=== PATIENT | male | born 1980 | race Asian ===

== ENCOUNTER 2023-12-21 16:29 | Emergency (ER) | payer OTHER, SELFPAY ==
[2023-12-21 16:30] VITALS: BP 141/80
--- NOTE | 2023-12-21 17:58 | ED.GENMED ---
Addendum entered and electronically signed by Mary Ocampo NP 12/22/23 09:10:
[facility] called, they do not have oxycodone capsules, requested rx for oxycodone pills, new rx sent.
Original Note:
History of Present Illness
General
Chief Complaint: Dizziness
Source: patient, spouse and other (language line )
Exam Limitations: none
Time Seen by Provider: 12/21/23 17:12
Nursing documentation reviewed up to this point in time: agreed with
History of Present Illness
History of Present Illness:
Patient is a 43-year-old male who was brought to the ER by for evaluation. Patient is here with right flank pain on Wednesday 2 days ago and has had nausea. Patient does feel intermittent dizziness. He does have a known stone and he reports
his symptoms of flank pain and dizziness are similar to when he had a stone in the past. He denies any fevers.
Pt has nausea but denies vomiting.
Review of Systems
Review of Systems
Allergies reviewed?: Yes
All Other Systems: ROS reviewed and negative except as documented in HPI and ROS
Constitutional: Reports no symptoms; Denies fever, fatigue or chills
Respiratory: Reports no symptoms
Cardiac: Reports no symptoms
ABD/GI: Reports nausea; Denies vomiting
: Reports no symptoms
Musculoskeletal: Reports no symptoms
Skin: Reports no symptoms
Neurological: Reports no symptoms
Psychiatric: Reports no symptoms
Phy Exam
General Physical Exam
General Presentation: no apparent distress
General age: appears stated age
General Skin: warm and dry
General Habitus: normal
General Mental: alert
General Hydration: appears well hydrated
Gastrointestinal Exam
Gastrointestinal Exam: non tender and soft
Neurological Exam
Neurological Exam: alert and oriented x3
Course
Orders/Labs/Results
Orders:
Orders
12/21/23 16:34
Electrocardiogram (*1) Urgent
Reason for Study: Chest Pain
EKG- Treatment ONCE
12/21/23 17:53
CBC/With Diff [Complete Blood Count/With Diff] Urgent
Comprehensive Metabolic Panel Urgent
12/21/23 17:58
CT Abd/pel Without Iv Or Oral Urgent
Comment:
Reason For Exam: right flank pain
Ondansetron Injectable [Zofran] 4 mg IV NOW STA
12/21/23 17:59
0.9% Sodium Chloride 1000 ml [Nss] 1,000 ml IV BOLUS
12/21/23 18:27
Urinalysis Reflex To Culture Urgent
Date Specimen was Collected: 12/21/23
Time Specimen was Collected: 18:26
Abnormal Lab Results
12/21/23
17:53
RBC 4.67 L 10^6/uL
(4.70-6.10)
BUN 21 H mg/dl
(9-20)
12/21/23 17:53
12/21/23 17:53
Vital Signs
Initial and Last Documented VS:
Initial Vital Signs
Temp Pulse Resp BP Pulse Ox
98.6 F 80 20 141/80 99
12/21/23 16:30 12/21/23 16:30 12/21/23 16:30 12/21/23 16:30 12/21/23 16:30
Last Documented Vital Signs
Temp Pulse Resp BP Pulse Ox
98.6 F 83 15 141/80 100
12/21/23 16:30 12/21/23 17:52 12/21/23 17:52 12/21/23 16:30 12/21/23 17:52
MDM/Problems Addressed
Differential Diagnosis Includes:
Not limited to lightheadedness, renal colic, UTI, pyelonephritis
MDM/Problems Addressed:
Symtoms are consistent w/ renal colic. Pt with large 7mm in prox left ureter mod to severe left ureteral and pelvicalyceal dilatation. Patient is comfortable here and has not needed any medication he reported pain was worse at home. He is in no
acute distress denies any fevers and is afebrile normal kidney function and negative UTI. Case discussed with urology Dr. Hughes. This will likely need surgical intervention however if no infection and normal renal function urology is comfortable
with patient going home I did give patient prescription for Flomax and narcotic he may take ibuprofen and Tylenol however first. All instructions reviewed with and patient. is very understanding of Green[place]ic able to verbalize back to me
the instructions.
Not limited to
*Radiology
Radiology exam reviewed: radiology read reviewed (Large obstructing calculus within the proximal left ureter moderate to severe left ureteral and pelvicalyceal dilation proximal to the calculus measures 7 mmx6x3.3)
*Critical Care Note
Total Time (30-74mins, 75-104mins- exclusive of procedures): Not Applicable
Patient Management
Discussion with other providers: [facility] (urology )
Escalation/DeEscalation of care consider admission/obs:
Urology Dr. Hughes
ED Attending Note
-
Portions of this chart may have been created with voice recognition software.� Occasional wrong word or��sound alike� substitutions may have occurred due to the inherent limitations of voice recognition software.
Discharge Plan
Departure
Patient Disposition: Home (Routine Discharge)
Date of Disposition: 12/21/23
Time of Disposition: 19:34
Patient with high blood pressure during this ER visit?: Yes
Condition: Fair
Covid-19: Not Applicable
Discharge Problem:
Renal colic on left side
Instructions: Kidney stones in adults, Flank Pain (DC), BLOOD PRESSURE
Prescriptions:
New
tamsulosin [Flomax] 0.4 mg capsule
0.4 mg PO DAILY Qty: 7 0RF
oxycodone 5 mg capsule
5 mg PO Q6H PRN (Reason: Pain) Qty: 10 0RF
Referrals:
NONE,* [Family Provider] -
Activity Restrictions/Additional Instructions:
You have a large left kidney stone as discussed. You may take ibuprofen 600 mg every 8 hours with food and alternate with Tylenol.
If pain is not improved a strong prescription for pain medication was sent to your pharmacy. Take as directed. This is a narcotic. It Will cause drowsiness. No driving or drinking alcohol while taking this medication. This medication may also
cause constipation is recommended they take a stool softener with this medication.
In addition another medication called Flomax was sent. Take as directed.
Increase fluids
Strain all urine
Call urology tomorrow morning to make an appointment as soon as possible for reevaluation. It is likely that you will need surgery to remove this kidney stone
Return if any worsening of symptoms of increased pain fevers nausea vomiting or any further concerns
Interventions
Interventions:
*Risk Screen - Suicide Last Done: 12/21/23 16:30
*General Assessment Last Done: 12/21/23 16:30
*Neglect/Abuse Screening Last Done: 12/21/23 16:30
ED- Fall Risk Assessment Last Done: 12/21/23 19:08
ED- Neurological Assessment Last Done: 12/21/23 19:08
Discharge Date and Time
Print Language: UPPER SORBIAN
[2023-12-21 18:00] VITALS: BP 133/80
[2023-12-21 18:00] LABS: % Basophils 0.9 % (0-2); % Immature Granulocytes 0.3 % (0-0.5); % Lymphocytes 24.1 % (20.5-51.1); % Monocytes 7.5 % (1.7-9.3); % Neutrophils 66.2 % (42.2-75.2); Absolute Basophils 0.1 10^3/uL (0-0.2); Absolute Eosinophils 0.1 10^3/uL (0-0.7); Absolute Lymphocytes 1.7 10^3/uL (1.2-3.4); Absolute Monocytes 0.5 10^3/uL (0.1-0.6); Absolute Neutrophils 4.5 10^3/uL (1.4-6.5); Hematocrit 39.6 % (39.0-52.0); Hemoglobin 13.5 g/dL (13.0-18.0); Mean Corp Hgb Conc. 34.1 g/dL (33.0-37.0); Mean Corpuscular Hgb 28.9 pg (27.0-31.0); Mean Corpuscular Volume 84.8 fL (80.0-94.0); Mean Platelet Volume 10.1 fL (7.4-10.4); Nucleated Red Blood Cells % 0 % (-); Platelet Count 242 10^3/uL (130-400); Red Blood Cell Count 4.67 10^6/uL (4.70-6.10); Red Cell Dist. Width 13.5 % (11.5-14.5); White Blood Cell Count 6.8 10^3/uL (4.8-10.8)
[2023-12-21 18:19] LABS: ALT (SGPT) 28 U/L (0-50); AST (SGOT) 28 U/L (17-59); Albumin 4.3 g/dl (3.5-5.0); Alkaline Phosphatase 54 U/L (38-126); Blood Urea Nitrogen 21 mg/dl (9-20); Calcium 9.2 mg/dl (8.4-10.2); Carbon Dioxide 26 mmol/L (22-30); Chloride 106 mmol/L (98-107); Glucose 99 mg/dl (70-99); Potassium 3.8 mmol/L (3.5-5.1); Sodium 138 mmol/L (135-145); Total Bilirubin 0.7 mg/dl (0.2-1.3); Total Protein 7.1 g/dl (6.3-8.2); eGFR > 60.00
[2023-12-21] MEDS: ZOFRAN 4 MG IV (18:23)
[2023-12-21] MEDS: NSS 1000 IV (18:24)
[2023-12-21 18:35] LABS: Urine Albumin Negative (Neg - Trace); Urine Bilirubin Negative (Negative); Urine Character Clear (Clear); Urine Color Yellow; Urine Glucose Negative (Negative); Urine Ketone Negative (Negative); Urine Leukocyte Negative (Negative); Urine Nitrite Negative (Negative); Urine Occult Blood Negative (Negative); Urine Specific Gravity 1.015 (<1.030); Urine Urobilinogen Negative (Neg - 1+); Urine pH 6.5 (5.0-9.0)
[2023-12-21 18:40] VITALS: BP 116/81
[2023-12-21 19:00] VITALS: BP 121/81
[2023-12-21 20:04] VITALS: BP 117/83
[2023-12-21 20:05] VITALS: BP 117/83
== END 2023-12-21 20:05 | disposition home or self-care (01) ==
LOC: EMR 16:29
PROVIDERS: Nurse Practitioner; EMERGENCY PHYSICIAN Emergency Medicine
DX: N23 Unspecified renal colic (principal); R11.0 Nausea; R42 Dizziness and giddiness; R03.0 Elevated blood-pressure reading, without diagnosis of hypertension; Z87.442 Personal history of urinary calculi
CPT/HCPCS: 99284; 96374; 96361; 74176; 80053; 81003; 85025; 93005

== ENCOUNTER 2023-12-29 06:13 | Day surgery (SDC) | payer OTHER, SELFPAY ==
[2023-12-29] VITALS (11 sets, daily range): BP systolic 110–121; BP diastolic 74–85; BMI 18.2
[2023-12-29] MEDS: NORMOSOL-R 1000 IV (06:54)
--- NOTE | 2023-12-29 07:30 | PTCARENOTE ---
Patients daughter translated but with medical questions or explanation inserting operator used. Will monitor patient.
[2023-12-29] MEDS: Pyridium 200 MG PO (09:11)
[2023-12-31 18:38] LABS: Stone Analysis Mass 18 mg
== END 2023-12-29 10:17 | disposition home or self-care (01) ==
LOC: SDS 06:13
PROVIDERS: ATTENDING PHYSICIAN Specialist
DX: N13.2 Hydronephrosis with renal and ureteral calculous obstruction (principal)
CPT/HCPCS: 52356; 74018; 76000; 82365; C1894; C2617